=== PATIENT | female | born 1995 | race Caucasian/White ===

== ENCOUNTER → 2017-10-21 | Outpatient (CLI) | payer SELFPAY ==
--- NOTE | 2017-10-21 18:37 | RADIOLOGY IMAGING REPORT ---
[place] [facility] [place] NAME: Viji Baca : 1995 MR: [id number] V: [id number] EXAM DATE: ORDERING PHYSICIAN: JEISON VERA TECHNOLOGIST: Location: Patient: Viji Baca : 1995 Visit/Account:[id number] Date of Sevice: 10/21/2017 WRIST RIGHT MIN 3 VIEW Indication: Pain Comparison: None Available Findings: No evidence of fracture, dislocation, or acute osseous abnormality right wrist. No evidence of radiopaque foreign body. There is no focal soft tissue abnormality. IMPRESSION: 1.No acute osseous abnormality right wrist Report Dictated By: Dmitriy Fonseca at 10/21/2017 6:33 PM Report E-Signed By: Dmitriy Fonseca at 10/21/2017 6:33 PM WSN:[id number]
== END ==
LOC: RAD 17:05
PROVIDERS: ATTEND Nurse Practitioner Family
DX: M25.531 Pain in right wrist (principal)

== ENCOUNTER 2018-03-24 21:01 | Emergency (ER) | payer SELFPAY ==
--- NOTE | 2018-03-24 21:14 | ER Report ---
History and Physical Time Seen By MD: 21:13 HPI/ROS CHIEF COMPLAINT: Vomiting and diarrhea HISTORY OF PRESENT ILLNESS: 23-year-old female presents ambulatory to the ER complaining of diarrhea for 4 days. She works at daycare. Tonight she began vomiting which prompted her to come to the ER. She describes burning stomach pain throughout her abdomen. She's had no hematemesis. She's had no blood per rectum or fevers. She denies recent antibiotic use or consumption of bad food. Patient denies dysuria. REVIEW OF SYSTEMS: Respiratory: No cough, no dyspnea. Cardiovascular: No chest pain, no palpitations. Gastrointestinal: As above Musculoskeletal: No back pain. Allergies: Coded Allergies: No Known Drug Allergies (Unverified , 03/24/18) Home Meds Active Scripts Promethazine Hcl (PROMETHAZINE HCL) 25 Mg Tablet, 25 MG PO Q4H PRN for NAUSEA/VOMITING, #12 TAB Prov:CARROLL FUENTES DO 03/24/18 Reviewed Nurses Notes: Yes Old Medical Records Reviewed: Yes Constitutional Vital Sign - Last 24 Hours 03/24/18 03/24/18 03/24/18 03/24/18 21:14 21:16 21:18 21:31 Temp 97.9 Pulse 74 ? Resp 16 B/P (MAP) 132/77 132/77 (95) Pulse Ox 100 03/24/18 03/24/18 03/24/18 03/24/18 21:46 22:00 22:01 22:16 Pulse ? B/P (MAP) ???/??? (1665) 03/24/18 03/24/18 03/24/18 03/24/18 22:31 22:43 22:46 22:51 Pulse ??? 77 71 B/P (MAP) 119/73 (88) Pulse Ox 98 99 03/24/18 03/24/18 03/24/18 03/24/18 23:00 23:02 23:06 23:21 Pulse 66 71 B/P (MAP) 127/79 (95) Pulse Ox 100 100 O2 Flow Rate 2.0 03/24/18 03/24/18 03/24/18 03/24/18 23:30 23:36 23:41 23:51 Pulse 72 ??? B/P (MAP) 126/82 (97) 109/60 (76) Pulse Ox 100 03/25/18 00:04 Pulse ??? Intake and Output 03/24/18 03/24/18 03/25/18 15:00 23:00 07:00 Intake Total 1000 ml 1000 ml Balance 1000 ml 1000 ml Physical Exam Vital signs stable, mild tachycardia, afebrile, pulse ox normal General Appearance: The patient is alert, has no immediate need for airway protection and no current signs of toxicity., Pale appearing, skin warm and dry HEENT: Pupils equal and round no injection. Oropharynx with mild erythema, hemorrhage are moist, no exudate Respiratory: Chest is non tender, lungs are clear to auscultation. Cardiac: regular rate and rhythm Gastrointestinal: Abdomen is soft, mild diffuse tenderness, no masses, bowel sounds are hyperactive. Musculoskeletal: Neck: Neck is supple and non tender. Extremities have full range of motion and are non tender. Skin: No rashes or lesions. DIFFERENTIAL DIAGNOSIS: After history and physical exam differential diagnosis was considered for abdominal pain including but not limited to appendicitis, cholecystitis, gastritis, gastritis, food poisoning, viral syndrome and urinary tract infection. Medical Decision Making Data Points Result Diagram: 03/24/18213803/24/182138 Laboratory Hematology Test 03/24/18 21:16 03/24/18 21:39 Urine Color Straw Urine Clarity Clear Urine pH 6.0 pH (4.8-9.5) Urine Specific [place] 1.001 Urine Protein Negative mg/dL (NEGATIVE) Urine Glucose (UA) Negative mg/dL (NEGATIVE) Urine Ketones Negative mg/dL (NEGATIVE) Urine Blood Negative (NEGATIVE) Urine Nitrite Negative (NEGATIVE) Urine Bilirubin Negative (NEGATIVE) Urine Urobilinogen Negative mg/dL (0.2-1.9) Urine Leukocyte Esterase Negative (NEGATIVE) Urine RBC <1 /HPF (0-2/HPF) Urine WBC <1 /HPF (0-5/HPF) Urine Squamous Epithelial Cells None /LPF (</=FEW) Urine Bacteria Moderate /HPF (NONE-FEW) Urine Mucus None /HPF (NONE-FEW) Red Blood Count 5.55 M/uL (4.17-5.56) Mean Corpuscular Volume 84.6 fL (80.0-96.0) Mean Corpuscular Hemoglobin 29.0 pg (26.0-33.0) Mean Corpuscular Hemoglobin Concent 34.4 g/dL (32.0-36.0) Red Cell Distribution Width 13.3 % (11.5-14.5) Mean Platelet Volume 8.3 fL (7.2-11.1) Neutrophils (%) (Auto) 48.7 % (39.4-72.5) Lymphocytes (%) (Auto) 39.1 % (17.6-49.6) Monocytes (%) (Auto) 9.4 % (4.1-12.4) Eosinophils (%) (Auto) 2.3 % (0.4-6.7) Basophils (%) (Auto) 0.5 % (0.3-1.4) Nucleated RBC Relative Count (auto) 0.1 /100WBC Neutrophils # (Auto) 3.0 K/uL (2.0-7.4) Lymphocytes # (Auto) 2.4 K/uL (1.3-3.6) Monocytes # (Auto) 0.6 K/uL (0.3-1.0) Eosinophils # (Auto) 0.1 K/uL (0.0-0.5) Basophils # (Auto) 0.0 K/uL (0.0-0.1) Nucleated RBC Absolute Count (auto) 0.01 K/uL Sodium Level 141 mmol/L (137-145) Potassium Level 3.1 mmol/L (3.5-5.0) Chloride Level 108 mmol/L (98-107) Carbon Dioxide Level 22 mmol/L (22-31) Blood Urea Nitrogen 7 mg/dl (7-18) Creatinine 0.70 mg/dl (0.52-1.04) Glomerular Filtration Rate Calc > 60.0 Random Glucose 97 mg/dl (75-110) Calcium Level 9.8 mg/dl (8.4-10.2) Total Bilirubin 0.9 mg/dl (0.2-1.3) Aspartate Amino Transf (AST/SGOT) 50 U/L (0-35) Alanine Aminotransferase (ALT/SGPT) 61 U/L (0-56) Alkaline Phosphatase 96 U/L (0-126) Total Protein 8.3 g/dl (6.3-8.2) Albumin 4.7 g/dl (3.5-5.0) Amylase Level 90 U/L (0-110) Lipase 195 U/L (23-300) Human Chorionic Gonadotropin, Qual Negative (NEGATIVE) Chemistry Test 03/24/18 21:16 03/24/18 21:39 Urine Color Straw Urine Clarity Clear Urine pH 6.0 pH (4.8-9.5) Urine Specific [place] 1.001 Urine Protein Negative mg/dL (NEGATIVE) Urine Glucose (UA) Negative mg/dL (NEGATIVE) Urine Ketones Negative mg/dL (NEGATIVE) Urine Blood Negative (NEGATIVE) Urine Nitrite Negative (NEGATIVE) Urine Bilirubin Negative (NEGATIVE) Urine Urobilinogen Negative mg/dL (0.2-1.9) Urine Leukocyte Esterase Negative (NEGATIVE) Urine RBC <1 /HPF (0-2/HPF) Urine WBC <1 /HPF (0-5/HPF) Urine Squamous Epithelial Cells None /LPF (</=FEW) Urine Bacteria Moderate /HPF (NONE-FEW) Urine Mucus None /HPF (NONE-FEW) White Blood Count 6.2 k/uL (4.5-11.0) Red Blood Count 5.55 M/uL (4.17-5.56) Hemoglobin 16.1 g/dL (12.0-16.0) Hematocrit 46.9 % (34.0-47.0) Mean Corpuscular Volume 84.6 fL (80.0-96.0) Mean Corpuscular Hemoglobin 29.0 pg (26.0-33.0) Mean Corpuscular Hemoglobin Concent 34.4 g/dL (32.0-36.0) Red Cell Distribution Width 13.3 % (11.5-14.5) Platelet Count 308 K/uL (150-450) Mean Platelet Volume 8.3 fL (7.2-11.1) Neutrophils (%) (Auto) 48.7 % (39.4-72.5) Lymphocytes (%) (Auto) 39.1 % (17.6-49.6) Monocytes (%) (Auto) 9.4 % (4.1-12.4) Eosinophils (%) (Auto) 2.3 % (0.4-6.7) Basophils (%) (Auto) 0.5 % (0.3-1.4) Nucleated RBC Relative Count (auto) 0.1 /100WBC Neutrophils # (Auto) 3.0 K/uL (2.0-7.4) Lymphocytes # (Auto) 2.4 K/uL (1.3-3.6) Monocytes # (Auto) 0.6 K/uL (0.3-1.0) Eosinophils # (Auto) 0.1 K/uL (0.0-0.5) Basophils # (Auto) 0.0 K/uL (0.0-0.1) Nucleated RBC Absolute Count (auto) 0.01 K/uL Glomerular Filtration Rate Calc > 60.0 Calcium Level 9.8 mg/dl (8.4-10.2) Total Bilirubin 0.9 mg/dl (0.2-1.3) Aspartate Amino Transf (AST/SGOT) 50 U/L (0-35) Alanine Aminotransferase (ALT/SGPT) 61 U/L (0-56) Alkaline Phosphatase 96 U/L (0-126) Total Protein 8.3 g/dl (6.3-8.2) Albumin 4.7 g/dl (3.5-5.0) Amylase Level 90 U/L (0-110) Lipase 195 U/L (23-300) Human Chorionic Gonadotropin, Qual Negative (NEGATIVE) Urinalysis Test 03/24/18 21:16 Urine Color Straw Urine Clarity Clear Urine pH 6.0 pH (4.8-9.5) Urine Specific [place] 1.001 Urine Protein Negative mg/dL (NEGATIVE) Urine Glucose (UA) Negative mg/dL (NEGATIVE) Urine Ketones Negative mg/dL (NEGATIVE) Urine Blood Negative (NEGATIVE) Urine Nitrite Negative (NEGATIVE) Urine Bilirubin Negative (NEGATIVE) Urine Urobilinogen Negative mg/dL (0.2-1.9) Urine Leukocyte Esterase Negative (NEGATIVE) Urine RBC <1 /HPF (0-2/HPF) Urine WBC <1 /HPF (0-5/HPF) Urine Squamous Epithelial Cells None /LPF (</=FEW) Urine Bacteria Moderate /HPF (NONE-FEW) Urine Mucus None /HPF (NONE-FEW) ED Course/Re-evaluation Clinical Indication for ER IV: Hydration, IV Access ED Course Patient was admitted to an examination room. H&P was done. The differential diagnoses was considered. On clinical examination. Patient has a benign nonsurgical abdomen. She is aggressively treated with IV fluid hydration, Zo petar, and analgesics. Patient's diagnostic studies were unremarkable. She was in the bathroom 2 times during her ER stay. She was unable to provide a diarrhea specimen for analysis. She's not had any recent antibiotics. She works at daycare. It is likely viral gastroenteritis causing her symptoms. Patient's advised a clear liquid diet. She is given a prescription for Phenergan to control her vomiting. She is advised ibuprofen for pain relief. She is advised to advance slowly through the brat diet.. Decision to Disposition Date: Mar 24, 2018 Decision to Disposition Time: 22:23 Depart Departure Latest Vital Signs Vital Signs Date Time Temp Pulse Resp B/P (MAP) Pulse Ox O2 Delivery O2 Flow Rate FiO2 03/25/18 00:04 ??? 03/24/18 23:41 109/60 (76) 03/24/18 23:36 100 03/24/18 23:02 2.0 03/24/18 21:14 97.9 16 Impression: Primary Impression: Vomiting and diarrhea Condition: Improved Disposition: HOME OR SELF-CARE Referrals: JACOB PIMENTEL MD, FARRUKH MD New Scripts Promethazine Hcl (PROMETHAZINE HCL) 25 Mg Tablet 25 MG PO Q4H PRN for NAUSEA/VOMITING, #12 TAB Prov: CARROLL FUENTES DO 03/24/18 Patient Instructions: Acute Diarrhea (ED), Acute Nausea and Vomiting (ED), Clear Liquid Diet (ED) Additional Instructions: Follow clear liquid diet for 24-48 hours, then advance to the brat diet, bananas, rice, applesauce and toast Take Imodium to control the diarrhea Take ibuprofen 200 mg 2 tablets 3 times a day for inflammatory pain relief Follow-up with your primary care doctor if unimproved in 3-5 days. CARROLL FUENTES DO Mar 24, 2018 21:14
[2018-03-24] MEDS ORDERED: KETOROLAC 30 MG/ML VIAL IVP ONE (21:20)
[2018-03-24] MEDS ORDERED: ONDANSETRON 4 MG/2 ML VIAL IVP ONE (21:20)
[2018-03-24] MEDS ORDERED: NS(*) 0.9% 1000 ML BAG 1,000 ML IV ONE (21:20)
[2018-03-24] MEDS ORDERED: fentaNYL CITR 100 MCG/2 ML AMP IVP ONE ×2 (21:35→22:25)
[2018-03-24 21:54] LABS: PLATELET COUNT, AUTOMATED 308 K/uL (150-450)
[2018-03-24] MEDS ORDERED: PROMETHAZINE 25 MG/ML 1 ML AMP IVP ONE (22:25)
[2018-03-24] MEDS ORDERED: LR(*) 1000 ML BAG 1,000 ML IV PRN (22:50)
[2018-03-24] MEDS ORDERED: PROM-110 PO (22:59)
[2018-03-24] MEDS ORDERED: ACET/HYDROC 5/325MG TH ER ONLY 2 TAB/BOTTLE PO ONE (23:10)
[2018-03-24] MEDS ORDERED: PROMETHAZINE HCL 25 MG TAB TH 2 TAB/BOTTLE PO ONE (23:10)
[2018-03-24 23:41] VITALS: BP 109/60
== END 2018-03-24 23:50 | disposition home or self-care (01) ==
LOC: ER 21:42
DX: R19.7 Diarrhea, unspecified (principal); R11.10 Vomiting, unspecified
CPT/HCPCS: 81001; 82150; 83690; 84703; 85025; 96361; 96374; 96375; 96376; 99284; J1885; J2405; J2550; J3010; J7030; J7120; 82040; 82247; 82310; 82374; 82435; 82565; 82947; 84075; 84132; 84155; 84295; 84450; 84460; 84520

== ENCOUNTER 2018-06-07 15:03 | Emergency (ER) | payer SELFPAY ==
[~2018-06-07 15:03] MED LIST: PROM-110 PO
--- NOTE | 2018-06-07 15:12 | ER Report ---
History and Physical Time Seen By MD: 15:12 HPI/ROS CHIEF COMPLAINT: Abdominal pain HISTORY OF PRESENT ILLNESS: 23-year-old female patient presents to emergency room with complaint of abdominal pain. Patient states that the pain has been going on for the past several months. Patient states that she has been seen by primary care provider at [facility] and was told that they're concerned that she may have appendicitis. They recommended getting some lab work done. She states that she was not able to get the lab work done as [place] clinic [place]. Patient states that she has tried taking some Tylenol for this. She states there is no improvement in her discomfort with the Tylenol. Patient rates her pain currently a 9 out of 10. Patient indicates the pain seems to be in the upper abdomen, worse on the right side but states that today the pain is worse in the left upper and lower quadrants. REVIEW OF SYSTEMS: Respiratory: No cough, no dyspnea. Cardiovascular: No chest pain, no palpitations. Gastrointestinal: As noted above Musculoskeletal: No back pain. Allergies: Coded Allergies: No Known Drug Allergies (Unverified , 03/24/18) Home Meds Active Scripts Ondansetron Hcl (ZOFRAN) 4 Mg Tablet, 4 MG PO Q6H PRN for NAUSEA/VOMITING, #20 TAB Prov:DAVY MONTERO [facility] 06/07/18 Dicyclomine Hcl (DICYCLOMINE HCL) 20 Mg Tablet, 20 MG PO QID, #60 TAB Prov:DAVY MONTERO [facility] 06/07/18 Discontinued Scripts Promethazine Hcl (PROMETHAZINE HCL) 25 Mg Tablet, 25 MG PO Q4H PRN for NAUSEA/VOMITING, #12 TAB Prov:CARROLL FUENTES DO 03/24/18 Past Medical/Surgical History Patient denies any pertinent medical or surgical history. Reviewed Nurses Notes: Yes Hx Substance Use Disorder: No Hx Alcohol Use: No Constitutional Vital Sign - Last 24 Hours 06/07/18 06/07/18 06/07/18 06/07/18 15:14 15:30 15:43 16:00 Temp 98.3 Pulse 99 97 85 Resp 20 B/P (MAP) 121/84 117/84 (95) 119/76 (90) Pulse Ox 94 100 97 06/07/18 06/07/18 16:30 17:00 Pulse 80 85 B/P (MAP) 99/57 (71) 101/63 (76) Pulse Ox 94 96 Physical Exam General Appearance: The patient is alert, has no immediate need for airway protection and no current signs of toxicity. Respiratory: Chest is non tender, lungs are clear to auscultation. Cardiac: regular rate and rhythm Gastrointestinal: Abdomen is soft and tender diffusely but seems to be worse in the right upper quadrant, left upper quadrant and left lower quadrant, no masses, bowel sounds normal. Musculoskeletal: Neck: Neck is supple and non tender. Extremities have full range of motion and are non tender. Skin: No rashes or lesions. DIFFERENTIAL DIAGNOSIS: After history and physical exam differential diagnosis was considered for abdominal pain including but not limited to appendicitis, cholecystitis, gastritis and urinary tract infection. Medical Decision Making Data Points Result Diagram: 06/07/18 1538 06/07/18 1538 Laboratory Hematology Test 06/07/18 15:10 06/07/18 15:38 Urine Color Yellow Urine Clarity Slightly-cloudy Urine pH 7.0 pH (4.8-9.5) Urine Specific [place] 1.031 Urine Protein 30 mg/dL (NEGATIVE) Urine Glucose (UA) Negative mg/dL (NEGATIVE) Urine Ketones Negative mg/dL (NEGATIVE) Urine Blood Small (NEGATIVE) Urine Nitrite Negative (NEGATIVE) Urine Bilirubin Negative (NEGATIVE) Urine Urobilinogen 2.0 mg/dL (0.2-1.9) Urine Leukocyte Esterase Negative (NEGATIVE) Urine RBC 19 /HPF (0-2/HPF) Urine WBC 1 /HPF (0-5/HPF) Urine Squamous Epithelial Cells Many /LPF (</=FEW) Urine Amorphous Crystals Few /HPF Urine Bacteria Few /HPF (NONE-FEW) Urine Mucus Few /HPF (NONE-FEW) Red Blood Count 6.17 M/uL (4.17-5.56) Mean Corpuscular Volume 85.7 fL (80.0-96.0) Mean Corpuscular Hemoglobin 28.2 pg (26.0-33.0) Mean Corpuscular Hemoglobin Concent 32.9 g/dL (32.0-36.0) Red Cell Distribution Width 13.2 % (11.5-14.5) Mean Platelet Volume 8.3 fL (7.2-11.1) Neutrophils (%) (Auto) 61.7 % (39.4-72.5) Lymphocytes (%) (Auto) 30.8 % (17.6-49.6) Monocytes (%) (Auto) 6.4 % (4.1-12.4) Eosinophils (%) (Auto) 0.7 % (0.4-6.7) Basophils (%) (Auto) 0.4 % (0.3-1.4) Nucleated RBC Relative Count (auto) 0.2 /100WBC Neutrophils # (Auto) 5.0 K/uL (2.0-7.4) Lymphocytes # (Auto) 2.5 K/uL (1.3-3.6) Monocytes # (Auto) 0.5 K/uL (0.3-1.0) Eosinophils # (Auto) 0.1 K/uL (0.0-0.5) Basophils # (Auto) 0.0 K/uL (0.0-0.1) Nucleated RBC Absolute Count (auto) 0.02 K/uL Sodium Level 143 mmol/L (137-145) Potassium Level 3.5 mmol/L (3.5-5.0) Chloride Level 107 mmol/L (98-107) Carbon Dioxide Level 20 mmol/L (22-31) Blood Urea Nitrogen 10 mg/dl (7-18) Creatinine 0.80 mg/dl (0.52-1.04) Glomerular Filtration Rate Calc > 60.0 Random Glucose 83 mg/dl (75-110) Calcium Level 10.4 mg/dl (8.4-10.2) Total Bilirubin 1.2 mg/dl (0.2-1.3) Aspartate Amino Transf (AST/SGOT) 48 U/L (0-35) Alanine Aminotransferase (ALT/SGPT) 65 U/L (0-56) Alkaline Phosphatase 95 U/L (0-126) Total Protein 9.0 g/dl (6.3-8.2) Albumin 5.2 g/dl (3.5-5.0) Amylase Level 93 U/L (0-110) Lipase 189 U/L (23-300) Human Chorionic Gonadotropin, Qual Negative (NEGATIVE) Helicobacter pylori IgG Antibody Negative (NEGATIVE) Chemistry Test 06/07/18 15:10 06/07/18 15:38 Urine Color Yellow Urine Clarity Slightly-cloudy Urine pH 7.0 pH (4.8-9.5) Urine Specific [place] 1.031 Urine Protein 30 mg/dL (NEGATIVE) Urine Glucose (UA) Negative mg/dL (NEGATIVE) Urine Ketones Negative mg/dL (NEGATIVE) Urine Blood Small (NEGATIVE) Urine Nitrite Negative (NEGATIVE) Urine Bilirubin Negative (NEGATIVE) Urine Urobilinogen 2.0 mg/dL (0.2-1.9) Urine Leukocyte Esterase Negative (NEGATIVE) Urine RBC 19 /HPF (0-2/HPF) Urine WBC 1 /HPF (0-5/HPF) Urine Squamous Epithelial Cells Many /LPF (</=FEW) Urine Amorphous Crystals Few /HPF Urine Bacteria Few /HPF (NONE-FEW) Urine Mucus Few /HPF (NONE-FEW) White Blood Count 8.1 k/uL (4.5-11.0) Red Blood Count 6.17 M/uL (4.17-5.56) Hemoglobin 17.4 g/dL (12.0-16.0) Hematocrit 52.9 % (34.0-47.0) Mean Corpuscular Volume 85.7 fL (80.0-96.0) Mean Corpuscular Hemoglobin 28.2 pg (26.0-33.0) Mean Corpuscular Hemoglobin Concent 32.9 g/dL (32.0-36.0) Red Cell Distribution Width 13.2 % (11.5-14.5) Platelet Count 302 K/uL (150-450) Mean Platelet Volume 8.3 fL (7.2-11.1) Neutrophils (%) (Auto) 61.7 % (39.4-72.5) Lymphocytes (%) (Auto) 30.8 % (17.6-49.6) Monocytes (%) (Auto) 6.4 % (4.1-12.4) Eosinophils (%) (Auto) 0.7 % (0.4-6.7) Basophils (%) (Auto) 0.4 % (0.3-1.4) Nucleated RBC Relative Count (auto) 0.2 /100WBC Neutrophils # (Auto) 5.0 K/uL (2.0-7.4) Lymphocytes # (Auto) 2.5 K/uL (1.3-3.6) Monocytes # (Auto) 0.5 K/uL (0.3-1.0) Eosinophils # (Auto) 0.1 K/uL (0.0-0.5) Basophils # (Auto) 0.0 K/uL (0.0-0.1) Nucleated RBC Absolute Count (auto) 0.02 K/uL Glomerular Filtration Rate Calc > 60.0 Calcium Level 10.4 mg/dl (8.4-10.2) Total Bilirubin 1.2 mg/dl (0.2-1.3) Aspartate Amino Transf (AST/SGOT) 48 U/L (0-35) Alanine Aminotransferase (ALT/SGPT) 65 U/L (0-56) Alkaline Phosphatase 95 U/L (0-126) Total Protein 9.0 g/dl (6.3-8.2) Albumin 5.2 g/dl (3.5-5.0) Amylase Level 93 U/L (0-110) Lipase 189 U/L (23-300) Human Chorionic Gonadotropin, Qual Negative (NEGATIVE) Helicobacter pylori IgG Antibody Negative (NEGATIVE) Urinalysis Test 06/07/18 15:10 Urine Color Yellow Urine Clarity Slightly-cloudy Urine pH 7.0 pH (4.8-9.5) Urine Specific [place] 1.031 Urine Protein 30 mg/dL (NEGATIVE) Urine Glucose (UA) Negative mg/dL (NEGATIVE) Urine Ketones Negative mg/dL (NEGATIVE) Urine Blood Small (NEGATIVE) Urine Nitrite Negative (NEGATIVE) Urine Bilirubin Negative (NEGATIVE) Urine Urobilinogen 2.0 mg/dL (0.2-1.9) Urine Leukocyte Esterase Negative (NEGATIVE) Urine RBC 19 /HPF (0-2/HPF) Urine WBC 1 /HPF (0-5/HPF) Urine Squamous Epithelial Cells Many /LPF (</=FEW) Urine Amorphous Crystals Few /HPF Urine Bacteria Few /HPF (NONE-FEW) Urine Mucus Few /HPF (NONE-FEW) EKG/Imaging Imaging CT abdomen and pelvis with IV contrast Indication: Abdominal pain. Comparison: None available. . Technique: Axial CT images were obtained through the abdomen and pelvis during injection of nonionic iodinated intravenous contrast. Reformatted coronal and sagittal images were also obtained. One of the following dose optimization techniques was utilized in the performance of this exam: Automated exposure control; adjustment of the mA and/or kV according to the patient's size; or use of an iterative reconstruction technique. Specific details can be referenced in the facility's radiology CT exam operational policy. Contrast: 75 ml of Isovue-370 IV contrast. Findings: Lower lung gillis: Limited views lower lung field are unremarkable. Liver: No focal parenchymal abnormality of the liver. Biliary: Gallbladder appears unremarkable as well as the intra and extra hepatic biliary system. Pancreas: Normal appearance. Spleen: Normal appearance. Adrenal glands: Unremarkable. Kidneys / retroperitoneum: No evidence of nephrolithiasis or hydronephrosis. No discrete renal lesions. The inferior pole left kidney shows mild scarring and cortical calcification. At this level there is also 2 renal veins extending from this area into the IVC behind the aorta. There is also left renal vein anterior to the aorta. Bowel / peritoneum / mesenteries: The colon shows no focal abnormality. The appendix is normal. Small bowel shows no focal normality or obstruction. The stomach is unremarkable. Tiny bit of free fluid seen in pelvis likely physiologic. No fluid collections, free air or areas of inflammation. Lymph node assessment: No pathologic adenopathy identified. Pelvic structures: Pelvic structures visualized within normal limits. Vessels: No significant atherosclerotic calcifications seen throughout a nonaneurysmal abdominal aorta and branches. Musculoskeletal / Body wall: No acute or aggressive osseous abnormality. Incidental note of a pseudarthrosis between the right L5 transverse process and sacrum. IMPRESSION: 1. No acute intra-abdominal abnormality 2. Other chronic findings as above. Report Dictated By: Macho De at 06/07/2018 4:34 PM Report E-Signed By: Macho De at 06/07/2018 4:41 PM ED Course/Re-evaluation ED Course Patient was admitted to exam room, history and physical were obtained. Differential diagnoses were considered. On examination patient does have diffuse abdominal tenderness. A CBC, CMP, hCG, urinalysis were obtained. Lab results were unremarkable. Patient did have protein in her urine, protein or blood work was elevated at 9.3. I'm unsure as the pertinence of the protein in her urine. I discussed the findings with patient. Discussed the protein in her urine. It is my recommendation that she follow-up with her primary care provider in the next week to have a repeat urinalysis. I explained to her that I'm not sure what the cause of her abdominal pain is. However we will go ahead and put her on some Be ntyl to help with her discomfort. We will also give her some Zofran to help with the nausea. She is to follow-up as directed. She is return to emergency room if condition worsens. Patient verbalized understanding and agreement with plan. Decision to Disposition Date: Jun 07, 2018 Decision to Disposition Time: 16:56 Depart Departure Latest Vital Signs Vital Signs Date Time Temp Pulse Resp B/P (MAP) Pulse Ox O2 Delivery O2 Flow Rate FiO2 06/07/18 17:00 85 101/63 (76) 96 06/07/18 15:14 98.3 20 Impression: Primary Impression: Abdominal pain Condition: Improved Disposition: HOME OR SELF-CARE New Scripts Ondansetron Hcl (ZOFRAN) 4 Mg Tablet 4 MG PO Q6H PRN for NAUSEA/VOMITING, #20 TAB Prov: DAVY MONTERO MARTITA 06/07/18 Dicyclomine Hcl (DICYCLOMINE HCL) 20 Mg Tablet 20 MG PO QID, #60 TAB Prov: DAVY MONTERO MARTITA 06/07/18 Patient Instructions: Abdominal Pain (ED) Additional Instructions: Get plenty of rest. Limit activity by pain. Follow up with your primary care provider in the next week, I would recommend getting a repeat urinalysis. Increase fluid intake. Return to the ER if condition worsens. Keep a journal of your diet and pay attention to the foods that seem to upset your stomach. If you are not finding any cause for your pain you may need to see a general surgeon for colonoscopy. Continue with the diet that was recommended by your primary care provider. Take the omeprazole as directed. Problem Qualifiers Primary Impression: Abdominal pain Abdominal location: generalized Qualified Codes: R10.84 - Generalized abdominal pain BRANDEN MONTEROBabak ANDERS Jun 07, 2018 15:12
[2018-06-07] MEDS ORDERED: NS(*) 0.9% 1000 ML BAG 1,000 ML IV ONE (15:30)
[2018-06-07] MEDS ORDERED: ONDANSETRON 4 MG/2 ML VIAL IVP ONE (15:30)
[2018-06-07] MEDS ORDERED: MORPHINE 2 MG/ML SYR IVP ONE (15:30)
[2018-06-07 15:47] LABS: PLATELET COUNT, AUTOMATED 302 K/uL (150-450)
[2018-06-07] MEDS ORDERED: IOPAMIDOL 76% 100 ML INFUS BTL 100 ML ONE (15:50)
--- NOTE | 2018-06-07 16:50 | RADIOLOGY IMAGING REPORT ---
FACILITY: [facility] [place] PATIENT NAME: Viji Baca : 1995 MR: [id number] V: [id number] EXAM DATE: ORDERING PHYSICIAN: DAVY MONTERO TECHNOLOGIST: Location: [facility] Patient: Viji Baca : 1995 Visit/Account:[id number] Date of Sevice: 06/07/2018 CT abdomen and pelvis with IV contrast Indication: Abdominal pain. Comparison: None available. . Technique: Axial CT images were obtained through the abdomen and pelvis during injection of nonioni c iodinated intravenous contrast. Reformatted coronal and sagittal images were also obtained. One of the following dose optimization techniques was utilized in the performance of this exam: Autom ated exposure control; adjustment of the mA and/or kV according to the patient's size; or use of an i terative reconstruction technique. Specific details can be referenced in the facility's radiology C T exam operational policy. Contrast: 75 ml of Isovue-370 IV contrast. Findings: Lower lung gillis: Limited views lower lung field are unremarkable. Liver: No focal parenchymal abnormality of the liver. Biliary: Gallbladder appears unremarkable as well as the intra and extra hepatic biliary system. Pancreas: Normal appearance. Spleen: Normal appearance. Adrenal glands: Unremarkable. Kidneys / retroperitoneum: No evidence of nephrolithiasis or hydronephrosis. No discrete renal lesion s. The inferior pole left kidney shows mild scarring and cortical calcification. At this level there is also 2 renal veins extending from this area into the IVC behind the aorta. There is also left craig l vein anterior to the aorta. Bowel / peritoneum / mesenteries: The colon shows no focal abnormality. The appendix is normal. Small bowel shows no focal normality or obstruction. The stomach is unremarkable. Tiny bit of free fluid seen in pelvis likely physiologic. No fluid collections, free air or areas of inflammation. Lymph node assessment: No pathologic adenopathy identified. Pelvic structures: Pelvic structures visualized within normal limits. Vessels: No significant atherosclerotic calcifications seen throughout a nonaneurysmal abdominal aort a and branches. Musculoskeletal / Body wall: No acute or aggressive osseous abnormality. Incidental note of a pseudar throsis between the right L5 transverse process and sacrum. IMPRESSION: 1. No acute intra-abdominal abnormality 2. Other chronic findings as above. Report Dictated By: Macho De at 06/07/2018 4:34 PM Report E-Signed By: Macho De at 06/07/2018 4:41 PM WSN:[id number]
[2018-06-07 17:00] VITALS: BP 101/63
[2018-06-07] MEDS ORDERED: DICY20TA70 PO (17:07)
[2018-06-07] MEDS ORDERED: ONDA4TAB97 PO (17:07)
== END 2018-06-07 17:24 | disposition home or self-care (01) ==
LOC: ER 15:16
DX: R10.84 Generalized abdominal pain (principal)
CPT/HCPCS: 74177; 81001; 82150; 83690; 84703; 85025; 86677; 96361; 96374; 96375; 99284; J2270; J2405; J7030; Q9967; 82040; 82247; 82310; 82374; 82435; 82565; 82947; 84075; 84132; 84155; 84295; 84450; 84460; 84520

== ENCOUNTER 2018-06-25 20:13 | Emergency (ER) | payer SELFPAY ==
[~2018-06-25 20:13] MED LIST changes: +DICY20TA70 PO; +ONDA4TAB97 PO
--- NOTE | 2018-06-25 20:34 | ER Report ---
History and Physical Time Seen By MD: 20:34 Hx. of Stated Complaint: nausea for last two days. around 4pm today pt started having severe body aches, stomach pain, throwing HPI/ROS CHIEF COMPLAINT: abdominal pain HISTORY OF PRESENT ILLNESS: This is a 23 year old female. She had onset of abdominal pain earlier today. She had this in the right lower abdomen with radiation to the left side. Worsens with movement. Diarrhea yesterday. Nausea for the last two days. with an episode of vomiting earlier today. No fevers or c hills. Has body aches. Allergies: Coded Allergies: No Known Drug Allergies (Unverified , 03/24/18) Home Meds Active Scripts Ondansetron 4 Mg Odt (ONDANSETRON 4 MG ODT) 4 Mg Tab.rapdis, 4 MG PO Q6H PRN for NAUSEA/VOMITING, #20 TAB 0 Refills Prov:MORGAN GOINS MD 06/26/18 Hydrocodone Bit/Acetaminophen (HYDROCODON-ACETAMINOPHEN 5-325) 1 Each Tablet, 1 EACH PO Q4H PRN for PAIN, #12 TAB 0 Refills Prov:MORGAN GOINS MD 06/26/18 Dicyclomine Hcl (DICYCLOMINE HCL) 20 Mg Tablet, 20 MG PO QID, #60 TAB Prov:DAVY MONTERO 06/07/18 Discontinued Scripts Ondansetron Hcl (ZOFRAN) 4 Mg Tablet, 4 MG PO Q6H PRN for NAUSEA/VOMITING, #20 TAB Prov:DAVY MONTERO 06/07/18 Reviewed Nurses Notes: Yes Hx Substance Use Disorder: No Hx Alcohol Use: No Constitutional Vital Sign - Last 24 Hours 06/25/18 06/25/18 06/25/18 06/25/18 20:13 20:20 20:20 20:30 Temp 99.1 Pulse ??? 112 Resp 16 B/P (MAP) 127/120 127/120 (122) 126/101 (109) Pulse Ox 98 O2 Delivery Room Air 06/25/18 06/25/18 06/25/18 06/25/18 20:43 21:00 21:30 21:43 Pulse 56 110 B/P (MAP) 121/83 (96) 106/70 (82) Pulse Ox 91 90 06/25/18 06/25/18 22:00 23:30 Pulse 120 99 B/P (MAP) 108/74 (85) 111/59 (76) Pulse Ox 97 94 Intake and Output 06/25/18 06/25/18 06/26/18 15:00 23:00 07:00 Intake Total 1000 ml Balance 1000 ml Physical Exam General Appearance: The patient is alert. Crying because of pain. Eyes: Pupils are equal, round. No pallor, injection or icterus. ENT: Mucous membranes are moist. Normal oral mucosa. Posterior oropharynx is normal. Neck: Supple and non tender. Respiratory: Lungs are clear to auscultation. Cardiovascular: Regular rate and rhythm. No murmurs, gallops or rubs. Normal capillary refill. Gastrointestinal: Abdomen is soft, tender in the right lower abdomen. Nondistended. Normal active bowel sounds. No costovertebral angle tenderness with percussion. Neurological: Alert and oriented x3. No focal neurologic deficits Skin: Warm and dry. Musculoskeletal: Extremities are nontender. No tenderness in palpation of the cervical, thoracic and lumbar spine. DIFFERENTIAL DIAGNOSIS: After history and physical exam, differential diagnosis was considered for abdominal pain in a female including but not limited to ovarian cyst, pelvic inflammatory disease, ovarian torsion, urinary tract infection, and appendicitis. Medical Decision Making Data Points Result Diagram: 06/25/18202606/25/182026 Laboratory Hematology Test 06/25/18 20:16 06/25/18 20:27 Urine Color Yellow Urine Clarity Slightly-cloudy Urine pH 7.0 pH (4.8-9.5) Urine Specific [place] 1.018 Urine Protein Negative mg/dL (NEGATIVE) Urine Glucose (UA) Negative mg/dL (NEGATIVE) Urine Ketones 20 mg/dL (NEGATIVE) Urine Blood Negative (NEGATIVE) Urine Nitrite Negative (NEGATIVE) Urine Bilirubin Negative (NEGATIVE) Urine Urobilinogen Negative mg/dL (0.2-1.9) Urine Leukocyte Esterase Negative (NEGATIVE) Urine RBC 2 /HPF (0-2/HPF) Urine WBC 6 /HPF (0-5/HPF) Urine Squamous Epithelial Cells Many /LPF (</=FEW) Urine Bacteria Few /HPF (NONE-FEW) Urine Hyaline Casts Few /LPF (NONE-FEW) Urine Mucus Few /HPF (NONE-FEW) Red Blood Count 5.74 M/uL (4.17-5.56) Mean Corpuscular Volume 84.4 fL (80.0-96.0) Mean Corpuscular Hemoglobin 29.0 pg (26.0-33.0) Mean Corpuscular Hemoglobin Concent 34.4 g/dL (32.0-36.0) Red Cell Distribution Width 13.7 % (11.5-14.5) Mean Platelet Volume 8.2 fL (7.2-11.1) Neutrophils (%) (Auto) 81.3 % (39.4-72.5) Lymphocytes (%) (Auto) 9.8 % (17.6-49.6) Monocytes (%) (Auto) 8.2 % (4.1-12.4) Eosinophils (%) (Auto) 0.4 % (0.4-6.7) Basophils (%) (Auto) 0.3 % (0.3-1.4) Nucleated RBC Relative Count (auto) 0.0 /100WBC Neutrophils # (Auto) 5.1 K/uL (2.0-7.4) Lymphocytes # (Auto) 0.6 K/uL (1.3-3.6) Monocytes # (Auto) 0.5 K/uL (0.3-1.0) Eosinophils # (Auto) 0.0 K/uL (0.0-0.5) Basophils # (Auto) 0.0 K/uL (0.0-0.1) Nucleated RBC Absolute Count (auto) 0.00 K/uL Sodium Level 139 mmol/L (137-145) Potassium Level 3.2 mmol/L (3.5-5.0) Chloride Level 111 mmol/L (98-107) Carbon Dioxide Level 21 mmol/L (22-31) Blood Urea Nitrogen 9 mg/dl (7-18) Creatinine 0.70 mg/dl (0.52-1.04) Glomerular Filtration Rate Calc > 60.0 Random Glucose 96 mg/dl (75-110) Calcium Level 10.1 mg/dl (8.4-10.2) Total Bilirubin 1.0 mg/dl (0.2-1.3) Aspartate Amino Transf (AST/SGOT) 122 U/L (0-35) Alanine Aminotransferase (ALT/SGPT) 219 U/L (0-56) Alkaline Phosphatase 121 U/L (0-126) C-Reactive Protein 0.8 mg/dl (<1.0) Total Protein 8.6 g/dl (6.3-8.2) Albumin 5.0 g/dl (3.5-5.0) Amylase Level 85 U/L (0-110) Lipase 141 U/L (23-300) Human Chorionic Gonadotropin, Qual Negative (NEGATIVE) Chemistry Test 06/25/18 20:16 06/25/18 20:27 Urine Color Yellow Urine Clarity Slightly-cloudy Urine pH 7.0 pH (4.8-9.5) Urine Specific [place] 1.018 Urine Protein Negative mg/dL (NEGATIVE) Urine Glucose (UA) Negative mg/dL (NEGATIVE) Urine Ketones 20 mg/dL (NEGATIVE) Urine Blood Negative (NEGATIVE) Urine Nitrite Negative (NEGATIVE) Urine Bilirubin Negative (NEGATIVE) Urine Urobilinogen Negative mg/dL (0.2-1.9) Urine Leukocyte Esterase Negative (NEGATIVE) Urine RBC 2 /HPF (0-2/HPF) Urine WBC 6 /HPF (0-5/HPF) Urine Squamous Epithelial Cells Many /LPF (</=FEW) Urine Bacteria Few /HPF (NONE-FEW) Urine Hyaline Casts Few /LPF (NONE-FEW) Urine Mucus Few /HPF (NONE-FEW) White Blood Count 6.3 k/uL (4.5-11.0) Red Blood Count 5.74 M/uL (4.17-5.56) Hemoglobin 16.6 g/dL (12.0-16.0) Hematocrit 48.4 % (34.0-47.0) Mean Corpuscular Volume 84.4 fL (80.0-96.0) Mean Corpuscular Hemoglobin 29.0 pg (26.0-33.0) Mean Corpuscular Hemoglobin Concent 34.4 g/dL (32.0-36.0) Red Cell Distribution Width 13.7 % (11.5-14.5) Platelet Count 272 K/uL (150-450) Mean Platelet Volume 8.2 fL (7.2-11.1) Neutrophils (%) (Auto) 81.3 % (39.4-72.5) Lymphocytes (%) (Auto) 9.8 % (17.6-49.6) Monocytes (%) (Auto) 8.2 % (4.1-12.4) Eosinophils (%) (Auto) 0.4 % (0.4-6.7) Basophils (%) (Auto) 0.3 % (0.3-1.4) Nucleated RBC Relative Count (auto) 0.0 /100WBC Neutrophils # (Auto) 5.1 K/uL (2.0-7.4) Lymphocytes # (Auto) 0.6 K/uL (1.3-3.6) Monocytes # (Auto) 0.5 K/uL (0.3-1.0) Eosinophils # (Auto) 0.0 K/uL (0.0-0.5) Basophils # (Auto) 0.0 K/uL (0.0-0.1) Nucleated RBC Absolute Count (auto) 0.00 K/uL Glomerular Filtration Rate Calc > 60.0 Calcium Level 10.1 mg/dl (8.4-10.2) Total Bilirubin 1.0 mg/dl (0.2-1.3) Aspartate Amino Transf (AST/SGOT) 122 U/L (0-35) Alanine Aminotransferase (ALT/SGPT) 219 U/L (0-56) Alkaline Phosphatase 121 U/L (0-126) C-Reactive Protein 0.8 mg/dl (<1.0) Total Protein 8.6 g/dl (6.3-8.2) Albumin 5.0 g/dl (3.5-5.0) Amylase Level 85 U/L (0-110) Lipase 141 U/L (23-300) Human Chorionic Gonadotropin, Qual Negative (NEGATIVE) Urinalysis Test 06/25/18 20:16 Urine Color Yellow Urine Clarity Slightly-cloudy Urine pH 7.0 pH (4.8-9.5) Urine Specific [place] 1.018 Urine Protein Negative mg/dL (NEGATIVE) Urine Glucose (UA) Negative mg/dL (NEGATIVE) Urine Ketones 20 mg/dL (NEGATIVE) Urine Blood Negative (NEGATIVE) Urine Nitrite Negative (NEGATIVE) Urine Bilirubin Negative (NEGATIVE) Urine Urobilinogen Negative mg/dL (0.2-1.9) Urine Leukocyte Esterase Negative (NEGATIVE) Urine RBC 2 /HPF (0-2/HPF) Urine WBC 6 /HPF (0-5/HPF) Urine Squamous Epithelial Cells Many /LPF (</=FEW) Urine Bacteria Few /HPF (NONE-FEW) Urine Hyaline Casts Few /LPF (NONE-FEW) Urine Mucus Few /HPF (NONE-FEW) EKG/Imaging Imaging COMPUTED TOMOGRAPHY OF THE Abdomen and Pelvis with CONTRAST INDICATION: Right lower quadrant pain. TECHNIQUE: Contiguous axial 3.[address] images were obtained through the abdomen and pelvis after 75 mL Isovue-370. Coronal and sagittal reformatted images were submitted. COMPARISON: CT June 07, 2018. FINDINGS: Lung bases: Clear Liver and hepatic vasculature: Imaging of the abdomen is degraded by motion. The liver is mildly enlarged measuring 21 cm craniocaudal. Gallbladder and bile ducts: Normal Spleen: Unremarkable Pancreas: Normal Adrenals: Normal Kidneys, ureters and bladder: Nonobstructive punctate left renal calculi. The left kidney is larger than the right. Enhancement is symmetric. Normal- appearing bladder. Retroperitoneum and aorta: Normal GI tract, mesentery and peritoneum: A few small bowel loops are fluid-filled, a nonspecific finding. There is no bowel obstruction. Normal volume of gas and stool in the colon. No free air. The appendix is not definitively identified. Uterus and adnexa: Unremarkable uterus. Trace fluid in the cul-de-sac is likely physiologic. There are multiple follicles in both ovaries. Bones and soft tissues: No acute osseous abnormality. IMPRESSION: 1. The appendix is not definitively identified. 2. Small volume of fluid in the cul-de-sac is likely physiologic. There are several prominent follicles at each ovary. 3. A few fluid-filled small bowel loops is a nonspecific or potentially even an incidental finding. Correlate with suspicion of enteritis. There is no bowel obstruction. One of the following dose optimization techniques was utilized in the performance of this exam: Automated exposure control; adjustment of the mA and/or kV according to the patient's size; or use of an iterative reconstruction technique. Specific details can be referenced in the facility's radiology CT exam operational policy. Report Dictated By: Yony Butler MD at 06/25/2018 9:26 PM Transvaginal pelvic ultrasound INDICATION: Right lower quadrant pain. COMPARISON: CT dated June 07, 2018. FINDINGS: Uterus measures 6.1 x 3.8 x 3.5 cm. Uterus is retroverted. Double wall endometrial stripe measures 6 mm. There is mild free fluid in the cul-de-sac. Urinary bladder is empty. Pelvic vessels appear unremarkable on this examination. Right ovary measures 4.0 x 2.3 x 1.6 cm and shows normal blood flow and contains several small follicles. Left ovary measures 3.6 x 2.2 x 1.4 cm and shows normal blood flow and contains several small follicles. IMPRESSION: 1. No acute findings. 2. Small volume free fluid within the pelvis, likely physiologic. Report Dictated By: Akira Sherwood MD at 06/25/2018 11:43 PM Exam type: RIGHT LOWER QUADRANT History: rlq/pelvic pain Comparison: CT dated June 07, 2018. Findings: Sonographic evaluation performed of the right lower quadrant. The appendix is not identified. There is no free fluid or lymphadenopathy. The technologist reports no rebound tenderness or guarding. IMPRESSION: Nonvisualization of the appendix. Report Dictated By: Akira Sherwood MD at 06/25/2018 11:41 PM ED Course/Re-evaluation Clinical Indication for ER IV: Hydration, IV Access ED Course Patient was given morphine for pain and Zofran for nausea. Labs show normal white count, unremarkable labs. She still having significant pain. CT scan did not visualize the appendix but did not show any other acute process. Ultrasound of the right lower quadrant and pelvis was done which did not show any problems but again nonvisualization of the appendix. Reviewed this with the patient. With a negative white count this is reassuring however she does have subjective fevers and severe pain. I offered to have her admitted the hospital and call the general surgeon versus returning home with close follow-up. She does have an appointment with the [facility] tomorrow. She will follow up as planned. I provided Lortab and Zofran for nausea and pain. She can return to the ER for reevaluation and sooner if she is worsening. Decision to Disposition Date: Jun 26, 2018 Decision to Disposition Time: 00:09 Depart Departure Latest Vital Signs Vital Signs Date Time Temp Pulse Resp B/P (MAP) Pulse Ox O2 Delivery O2 Flow Rate FiO2 06/25/18 23:30 99 111/59 (76) 94 06/25/18 20:20 99.1 16 Room Air Impression: Primary Impression: Abdominal pain Condition: Improved Disposition: HOME OR SELF-CARE New Scripts Ondansetron 4 Mg Odt (ONDANSETRON 4 MG ODT) 4 Mg Tab.rapdis 4 MG PO Q6H PRN for NAUSEA/VOMITING, #20 TAB 0 Refills Prov: MORGAN GOINS MD 06/26/18 Hydrocodone Bit/Acetaminophen (HYDROCODON-ACETAMINOPHEN 5-325) 1 Each Tablet 1 EACH PO Q4H PRN for PAIN, #12 TAB 0 Refills Prov: MORGAN GOINS MD 06/26/18 Patient Instructions: Acute Abdominal Pain (ED) Additional Instructions: Follow-up tomorrow with the [facility] as planned. Return to the ER sooner for worsening symptoms. Take Lortab 5/325, one every 4 hours as needed for severe pain. Take Zofran 4mg, one every 6 hours as needed for nausea or vomiting. Problem Qualifiers Primary Impression: Abdominal pain Abdominal location: right lower quadrant Qualified Codes: R10.31 - Right lower quadrant pain MORGAN GOINS MD Jun 25, 2018 20:34
[2018-06-25] MEDS ORDERED: NS(*) 0.9% 1000 ML BAG 1,000 ML IV ONE (20:42)
[2018-06-25] MEDS ORDERED: MORPHINE 4 MG/ML SDV IVP ONE (20:45)
[2018-06-25] MEDS ORDERED: ONDANSETRON 4 MG/2 ML VIAL IVP ONE (20:45)
[2018-06-25 20:57] LABS: PLATELET COUNT, AUTOMATED 272 K/uL (150-450)
--- NOTE | 2018-06-25 21:41 | RADIOLOGY IMAGING REPORT ---
FACILITY: [facility] [place] PATIENT NAME: Viji Baca : 1995 MR: [id number] V: [id number] EXAM DATE: ORDERING PHYSICIAN: MORGAN GOINS TECHNOLOGIST: Location: [facility] [place] Patient: Viji Baca : 1995 Visit/Account:[id number] Date of Sevice: 06/25/2018 COMPUTED TOMOGRAPHY OF THE Abdomen and Pelvis with CONTRAST INDICATION: Right lower quadrant pain. TECHNIQUE: Contiguous axial 3.[address] images were obtained through the abdomen and pelvis after 75 m L Isovue-370. Coronal and sagittal reformatted images were submitted. COMPARISON: CT June 07, 2018. FINDINGS: Lung bases: Clear Liver and hepatic vasculature: Imaging of the abdomen is degraded by motion. The liver is mildly en larged measuring 21 cm craniocaudal. Gallbladder and bile ducts: Normal Spleen: Unremarkable Pancreas: Normal Adrenals: Normal Kidneys, ureters and bladder: Nonobstructive punctate left renal calculi. The left kidney is larger than the right. Enhancement is symmetric. Normal-appearing bladder. Retroperitoneum and aorta: Normal GI tract, mesentery and peritoneum: A few small bowel loops are fluid-filled, a nonspecific finding. There is no bowel obstruction. Normal volume of gas and stool in the colon. No free air. The appe ndix is not definitively identified. Uterus and adnexa: Unremarkable uterus. Trace fluid in the cul-de-sac is likely physiologic. There are multiple follicles in both ovaries. Bones and soft tissues: No acute osseous abnormality. IMPRESSION: 1. The appendix is not definitively identified. 2. Small volume of fluid in the cul-de-sac is likely physiologic. There are several prominent folli cles at each ovary. 3. A few fluid-filled small bowel loops is a nonspecific or potentially even an incidental finding. Correlate with suspicion of enteritis. There is no bowel obstruction. One of the following dose optimization techniques was utilized in the performance of this exam: Autom ated exposure control; adjustment of the mA and/or kV according to the patient's size; or use of an i terative reconstruction technique. Specific details can be referenced in the facility's radiology C T exam operational policy. Report Dictated By: Yony Butler MD at 06/25/2018 9:26 PM Report E-Signed By: Yony Butler MD at 06/25/2018 9:37 PM WSN:[email or web address]
[2018-06-25 23:30] VITALS: BP 111/59
--- NOTE | 2018-06-25 23:46 | RADIOLOGY IMAGING REPORT ---
FACILITY: [facility] [place] PATIENT NAME: Viji Baca : 1995 MR: [id number] V: [id number] EXAM DATE: ORDERING PHYSICIAN: MORGAN GOINS TECHNOLOGIST: Location: [facility] [place] Patient: Viji Baca : 1995 Visit/Account:[id number] Date of Sevice: 06/25/2018 Exam type: RIGHT LOWER QUADRANT History: rlq/pelvic pain Comparison: CT dated June 07, 2018. Findings: Sonographic evaluation performed of the right lower quadrant. The appendix is not identified. There i s no free fluid or lymphadenopathy. The technologist reports no rebound tenderness or guarding. IMPRESSION: Nonvisualization of the appendix. Report Dictated By: Akira Sherwood MD at 06/25/2018 11:41 PM Report E-Signed By: Akira Sherwood MD at 06/25/2018 11:42 PM WSN:[id number]
--- NOTE | 2018-06-25 23:48 | RADIOLOGY IMAGING REPORT ---
FACILITY: [facility] PATIENT NAME: Viji Baca : 1995 MR: [id number] V: [id number] EXAM DATE: ORDERING PHYSICIAN: MORGAN GOINS TECHNOLOGIST: Location: [facility] [place] Patient: Viji Baca : 1995 Visit/Account:[id number] Date of Sevice: 06/25/2018 Transvaginal pelvic ultrasound INDICATION: Right lower quadrant pain. COMPARISON: CT dated June 07, 2018. FINDINGS: Uterus measures 6.1 x 3.8 x 3.5 cm. Uterus is retroverted. Double wall endometrial stripe measures 6 mm. There is mild free fluid in the cul-de-sac. Urinary bladder is empty. Pelvic vessels appear unremarkable on this examination. Right ovary measures 4.0 x 2.3 x 1.6 cm and shows normal blood flow and contains several small follic les. Left ovary measures 3.6 x 2.2 x 1.4 cm and shows normal blood flow and contains several small follicl es. IMPRESSION: 1. No acute findings. 2. Small volume free fluid within the pelvis, likely physiologic. Report Dictated By: Akira Sherwood MD at 06/25/2018 11:43 PM Report E-Signed By: Akira Sherwood MD at 06/25/2018 11:44 PM WSN:[id number]
[2018-06-26] MEDS ORDERED: ACET/HYDROC 5/325MG TH ER ONLY 2 TAB/BOTTLE PO ONE (00:10)
[2018-06-26] MEDS ORDERED: LOR5/325 PO (00:10)
[2018-06-26] MEDS ORDERED: ONDANSETRON 4 MG ODT TH SL ONE (00:10)
[2018-06-26] MEDS ORDERED: ONDA4TAB9 PO (00:10)
[2018-06-27] MEDS ORDERED: PROM12.556 PO (10:28)
== END 2018-06-26 00:15 | disposition home or self-care (01) ==
LOC: ER 20:34
DX: R10.31 Right lower quadrant pain (principal)
CPT/HCPCS: 74177; 76705; 76830; 81001; 82150; 83690; 84703; 85025; 86140; 96361; 96374; 96375; 99284; J2270; J2405; J7030; S0119; 82040; 82247; 82310; 82374; 82435; 82565; 82947; 84075; 84132; 84155; 84295; 84450; 84460; 84520

== ENCOUNTER 2018-06-27 08:15 | Emergency (ER) | payer SELFPAY ==
[~2018-06-27 08:15] MED LIST changes: +LOR5/325 PO; +ONDA4TAB9 PO
--- NOTE | 2018-06-27 08:16 | ER Report ---
History and Physical Time Seen By MD: 08:16 HPI/ROS CHIEF COMPLAINT: Right-sided abdominal pain, nausea HISTORY OF PRESENT ILLNESS: Patient is a 23-year-old female here with complaints of right-sided abdominal pain since Saturday which she describes as sharp stabbing, constant. Patient was evaluated here 2 days prior for similar complaints. CT, ultrasound were unremarkable at that time. Patient reports nausea, decreased appetite, constant pain. Denies prior surgeries to the abdomen. Denies prior history of IBD. REVIEW OF SYSTEMS: Constitutional: No fever, no chills. Eyes: No discharge. ENT: No sore throat. Cardiovascular: No chest pain, no palpitations. Respiratory: No cough, no shortness of breath. + congestion Gastrointestinal: + right sided abdominal pain, no vomiting. + nausea Genitourinary: No hematuria. Musculoskeletal: No back pain. Skin: No rashes. Neurological: No headache. Allergies: Coded Allergies: No Known Drug Allergies (Unverified , 03/24/18) Home Meds Active Scripts Promethazine Hcl (PROMETHAZINE HCL) 12.5 Mg Tablet, 12.5 MG PO Q6H, #20 TAB Prov:JUAQUIN HASKINS DO 06/27/18 Ondansetron 4 Mg Odt (ONDANSETRON 4 MG ODT) 4 Mg Tab.rapdis, 4 MG PO Q6H PRN for NAUSEA/VOMITING, #20 TAB 0 Refills Prov:MORGAN GOINS MD 06/26/18 Hydrocodone Bit/Acetaminophen (HYDROCODON-ACETAMINOPHEN 5-325) 1 Each Tablet, 1 EACH PO Q4H PRN for PAIN, #12 TAB 0 Refills Prov:MORGAN GOINS MD 06/26/18 Dicyclomine Hcl (DICYCLOMINE HCL) 20 Mg Tablet, 20 MG PO QID, #60 TAB Prov:DAVY MONTERO 06/07/18 Discontinued Scripts Ondansetron Hcl (ZOFRAN) 4 Mg Tablet, 4 MG PO Q6H PRN for NAUSEA/VOMITING, #20 TAB Prov:DAVY MONTERO 06/07/18 Hx Substance Use Disorder: No Hx Alcohol Use: No Constitutional Vital Sign - Last 24 Hours 06/27/18 06/27/18 06/27/18 06/27/18 08:23 08:24 08:30 08:45 Temp 98.6 Pulse 99 106 Resp 16 B/P (MAP) 126/93 (104) 126/93 116/82 (93) Pulse Ox 97 96 O2 Delivery Room Air 06/27/18 06/27/18 06/27/18 06/27/18 09:00 09:15 09:30 09:35 Pulse 103 119 B/P (MAP) 107/73 (84) 89/77 (81) Pulse Ox 96 06/27/18 06/27/18 06/27/18 10:00 10:05 10:30 Pulse 103 B/P (MAP) 100/71 (81) 95/66 (76) Pulse Ox 95 Physical Exam General Appearance: The patient is alert, has no immediate need for airway protection and no signs of toxicity. Moderate distress due to pain Eyes: Pupils equal and round no pallor or injection. ENT, Mouth: Mucous membranes are moist. Respiratory: There are no retractions, lungs are clear to auscultation. Cardiovascular: Regular rate and rhythm. Gastrointestinal: Abdomen is soft and + tender on the right side without rebound or guarding, no masses, bowel sounds normal. Neurological: No focal deficits Skin: Warm and dry, no rashes. Musculoskeletal: Neck is supple non tender. Extremities are nontender, nonswollen and have full range of motion. DIFFERENTIAL DIAGNOSIS: After history and physical exam differential diagnosis was considered for abdominal pain including but not limited to appendicitis, cholecystitis, gastritis and urinary tract infection. Medical Decision Making Data Points Result Diagram: 06/27/18 0844 06/27/18 0844 Laboratory Hematology Test 06/27/18 08:20 06/27/18 08:44 Urine Color Yellow Urine Clarity Slightly-cloudy Urine pH 5.0 pH (4.8-9.5) Urine Specific [place] 1.027 Urine Protein 30 mg/dL (NEGATIVE) Urine Glucose (UA) Negative mg/dL (NEGATIVE) Urine Ketones 80 mg/dL (NEGATIVE) Urine Blood Large (NEGATIVE) Urine Nitrite Negative (NEGATIVE) Urine Bilirubin Negative (NEGATIVE) Urine Urobilinogen Negative mg/dL (0.2-1.9) Urine Leukocyte Esterase Negative (NEGATIVE) Urine RBC 13 /HPF (0-2/HPF) Urine WBC 2 /HPF (0-5/HPF) Urine Squamous Epithelial Cells Many /LPF (</=FEW) Urine Transitional Epithelial Cells Few /LPF (NONE-FEW) Urine Bacteria Few /HPF (NONE-FEW) Urine Mucus Few /HPF (NONE-FEW) Urine HCG, Qualitative Negative (NEGATIVE) Red Blood Count 5.76 M/uL (4.17-5.56) Mean Corpuscular Volume 85.5 fL (80.0-96.0) Mean Corpuscular Hemoglobin 28.6 pg (26.0-33.0) Mean Corpuscular Hemoglobin Concent 33.5 g/dL (32.0-36.0) Red Cell Distribution Width 13.8 % (11.5-14.5) Mean Platelet Volume 7.9 fL (7.2-11.1) Neutrophils (%) (Auto) 78.4 % (39.4-72.5) Lymphocytes (%) (Auto) 9.5 % (17.6-49.6) Monocytes (%) (Auto) 11.6 % (4.1-12.4) Eosinophils (%) (Auto) 0.2 % (0.4-6.7) Basophils (%) (Auto) 0.3 % (0.3-1.4) Nucleated RBC Relative Count (auto) 0.2 /100WBC Neutrophils # (Auto) 4.0 K/uL (2.0-7.4) Lymphocytes # (Auto) 0.5 K/uL (1.3-3.6) Monocytes # (Auto) 0.6 K/uL (0.3-1.0) Eosinophils # (Auto) 0.0 K/uL (0.0-0.5) Basophils # (Auto) 0.0 K/uL (0.0-0.1) Nucleated RBC Absolute Count (auto) 0.01 K/uL Erythrocyte Sedimentation Rate 5 mm/HOUR (0-20) Sodium Level 138 mmol/L (137-145) Potassium Level 4.1 mmol/L (3.5-5.0) Chloride Level 107 mmol/L (98-107) Carbon Dioxide Level 17 mmol/L (22-31) Blood Urea Nitrogen 11 mg/dl (7-18) Creatinine 0.70 mg/dl (0.52-1.04) Glomerular Filtration Rate Calc > 60.0 Random Glucose 80 mg/dl (75-110) Lactate 1.7 mmol/L (0.7-2.1) Calcium Level 9.9 mg/dl (8.4-10.2) Total Bilirubin 1.0 mg/dl (0.2-1.3) Aspartate Amino Transf (AST/SGOT) 58 U/L (0-35) Alanine Aminotransferase (ALT/SGPT) 149 U/L (0-56) Alkaline Phosphatase 112 U/L (0-126) C-Reactive Protein 4.1 mg/dl (<1.0) Total Protein 8.9 g/dl (6.3-8.2) Albumin 5.0 g/dl (3.5-5.0) Lipase 88 U/L (23-300) Chemistry Test 06/27/18 08:20 06/27/18 08:44 Urine Color Yellow Urine Clarity Slightly-cloudy Urine pH 5.0 pH (4.8-9.5) Urine Specific [place] 1.027 Urine Protein 30 mg/dL (NEGATIVE) Urine Glucose (UA) Negative mg/dL (NEGATIVE) Urine Ketones 80 mg/dL (NEGATIVE) Urine Blood Large (NEGATIVE) Urine Nitrite Negative (NEGATIVE) Urine Bilirubin Negative (NEGATIVE) Urine Urobilinogen Negative mg/dL (0.2-1.9) Urine Leukocyte Esterase Negative (NEGATIVE) Urine RBC 13 /HPF (0-2/HPF) Urine WBC 2 /HPF (0-5/HPF) Urine Squamous Epithelial Cells Many /LPF (</=FEW) Urine Transitional Epithelial Cells Few /LPF (NONE-FEW) Urine Bacteria Few /HPF (NONE-FEW) Urine Mucus Few /HPF (NONE-FEW) Urine HCG, Qualitative Negative (NEGATIVE) White Blood Count 5.1 k/uL (4.5-11.0) Red Blood Count 5.76 M/uL (4.17-5.56) Hemoglobin 16.5 g/dL (12.0-16.0) Hematocrit 49.2 % (34.0-47.0) Mean Corpuscular Volume 85.5 fL (80.0-96.0) Mean Corpuscular Hemoglobin 28.6 pg (26.0-33.0) Mean Corpuscular Hemoglobin Concent 33.5 g/dL (32.0-36.0) Red Cell Distribution Width 13.8 % (11.5-14.5) Platelet Count 238 K/uL (150-450) Mean Platelet Volume 7.9 fL (7.2-11.1) Neutrophils (%) (Auto) 78.4 % (39.4-72.5) Lymphocytes (%) (Auto) 9.5 % (17.6-49.6) Monocytes (%) (Auto) 11.6 % (4.1-12.4) Eosinophils (%) (Auto) 0.2 % (0.4-6.7) Basophils (%) (Auto) 0.3 % (0.3-1.4) Nucleated RBC Relative Count (auto) 0.2 /100WBC Neutrophils # (Auto) 4.0 K/uL (2.0-7.4) Lymphocytes # (Auto) 0.5 K/uL (1.3-3.6) Monocytes # (Auto) 0.6 K/uL (0.3-1.0) Eosinophils # (Auto) 0.0 K/uL (0.0-0.5) Basophils # (Auto) 0.0 K/uL (0.0-0.1) Nucleated RBC Absolute Count (auto) 0.01 K/uL Erythrocyte Sedimentation Rate 5 mm/HOUR (0-20) Glomerular Filtration Rate Calc > 60.0 Lactate 1.7 mmol/L (0.7-2.1) Calcium Level 9.9 mg/dl (8.4-10.2) Total Bilirubin 1.0 mg/dl (0.2-1.3) Aspartate Amino Transf (AST/SGOT) 58 U/L (0-35) Alanine Aminotransferase (ALT/SGPT) 149 U/L (0-56) Alkaline Phosphatase 112 U/L (0-126) C-Reactive Protein 4.1 mg/dl (<1.0) Total Protein 8.9 g/dl (6.3-8.2) Albumin 5.0 g/dl (3.5-5.0) Lipase 88 U/L (23-300) Urinalysis Test 06/27/18 08:20 Urine Color Yellow Urine Clarity Slightly-cloudy Urine pH 5.0 pH (4.8-9.5) Urine Specific [place] 1.027 Urine Protein 30 mg/dL (NEGATIVE) Urine Glucose (UA) Negative mg/dL (NEGATIVE) Urine Ketones 80 mg/dL (NEGATIVE) Urine Blood Large (NEGATIVE) Urine Nitrite Negative (NEGATIVE) Urine Bilirubin Negative (NEGATIVE) Urine Urobilinogen Negative mg/dL (0.2-1.9) Urine Leukocyte Esterase Negative (NEGATIVE) Urine RBC 13 /HPF (0-2/HPF) Urine WBC 2 /HPF (0-5/HPF) Urine Squamous Epithelial Cells Many /LPF (</=FEW) Urine Transitional Epithelial Cells Few /LPF (NONE-FEW) Urine Bacteria Few /HPF (NONE-FEW) Urine Mucus Few /HPF (NONE-FEW) Urine HCG, Qualitative Negative (NEGATIVE) EKG/Imaging Imaging Location: [facility] - [place], [place] Patient: Viji Baca : 1995 Visit/Account:[id number] Date of Sevice: 06/27/2018 GALLBLADDER COMPARISON: None. HISTORY: RUQ abd pain TECHNIQUE: Evans scale ultrasound of the right upper quadrant was performed. FINDINGS: LIVER: Normal size, 16.9 cm craniocaudally, and morphology with normal homogeneous echotexture. No appreciable masses. There is hepatopedal flow in the main portal vein as expected. GALLBLADDER: Normal size. No gallstones, wall thickening or pericholecystic fluid. Sonographic Almaraz's sign was reportedly positive. BILE DUCTS: No intrahepatic or extrahepatic bile duct dilatation. Common bile duct measures 4 mm. PANCREAS: Normal ultrasound appearance. RIGHT KIDNEY: Survey sagittal view of the right kidney shows no hydronephrosis. OTHER: Negative. IMPRESSION: Normal-appearing gallbladder although the tank welder reports a positive sonographic Almaraz sign. ED Course/Re-evaluation ED Course Patient is a 23-year-old female here with recurrent right-sided abdominal pain and a recent negative CT scanning of the abdomen, ultrasound of the right lower quadrant. Patient reports persistent pain, nausea, vomiting. Labs are unremarkable, lactate was normal, ESR was normal. Due to persistent pain in the right upper quadrant, ultrasound was obtained and showed no acute findings. I recommend close follow-up with gastroenterology. Return precautions provided. Patient received multiple analgesics during course. Patient was hemodynamically stable at time of discharge. Decision to Disposition Date: Jun 27, 2018 Decision to Disposition Time: 10:26 Depart Departure Latest Vital Signs Vital Signs Date Time Temp Pulse Resp B/P (MAP) Pulse Ox O2 Delivery O2 Flow Rate FiO2 06/27/18 10:30 95/66 (76) 06/27/18 10:05 103 95 06/27/18 08:24 98.6 16 Room Air Impression: Primary Impression: Abdominal pain Additional Impression: Vomiting and diarrhea Condition: Improved Disposition: HOME OR SELF-CARE New Scripts Promethazine Hcl (PROMETHAZINE HCL) 12.5 Mg Tablet 12.5 MG PO Q6H, #20 TAB Prov: JUAQUIN HASKINS DO 06/27/18 Patient Instructions: Abdominal Pain (ED) Additional Instructions: Please drink plenty of water. Your gallbladder ultrasound was found be normal today. Please follow-up with gastroenterology for further evaluation and outpatient care. Please return promptly if she develop worsening pain, fevers, inability to keep down food or fluids. You may take 1 tablet of Phenergan every 6 hours as needed for nausea and vomiting. Please follow-up with your primary care provider within the next 24-48 hours. Problem Qualifiers JUAQUIN HASKINS DO Jun 27, 2018 08:16
[2018-06-27] MEDS ORDERED: NS(*) 0.9% 1000 ML BAG 1,000 ML IV ONE ×3 (08:29→10:05)
[2018-06-27] MEDS ORDERED: ONDANSETRON 4 MG/2 ML VIAL IVP ONE (08:30)
[2018-06-27] MEDS ORDERED: fentaNYL CITR 100 MCG/2 ML AMP IVP ONE (08:30)
[2018-06-27] MEDS ORDERED: MAG HYD/AL HYD/SIMETH 30ML UDC PO ONE (08:30)
[2018-06-27] MEDS ORDERED: LIDOCAINE 2% VISC SLN 15ML UDC PO ONE (08:30)
[2018-06-27 08:58] LABS: PLATELET COUNT, AUTOMATED 238 K/uL (150-450)
[2018-06-27] MEDS ORDERED: METOCLOPRAMIDE 10 MG/2 ML SDV IVP ONE (09:15)
[2018-06-27] MEDS ORDERED: PROMETHAZINE 25 MG/ML 1 ML AMP IVP ONE (09:35)
[2018-06-27] MEDS ORDERED: PROM12.556 PO (10:28)
[2018-06-27 10:30] VITALS: BP 95/66
--- NOTE | 2018-06-27 10:47 | RADIOLOGY IMAGING REPORT ---
FACILITY: [facility] PATIENT NAME: Viji Baca : 1995 MR: [id number] V: [id number] EXAM DATE: ORDERING PHYSICIAN: JUAQUIN HASKINS TECHNOLOGIST: Location: [facility] Patient: Viji Baca : 1995 Visit/Account:[id number] Date of Sevice: 06/27/2018 GALLBLADDER COMPARISON: None. HISTORY: RUQ abd pain TECHNIQUE: Evans scale ultrasound of the right upper quadrant was performed. FINDINGS: LIVER: Normal size, 16.9 cm craniocaudally, and morphology with normal homogeneous echotexture. No appreciable masses. There is hepatopedal flow in the main portal vein as expected. GALLBLADDER: Normal size. No gallstones, wall thickening or pericholecystic fluid. Sonographic Mur phy's sign was reportedly positive. BILE DUCTS: No intrahepatic or extrahepatic bile duct dilatation. Common bile duct measures 4 mm. PANCREAS: Normal ultrasound appearance. RIGHT KIDNEY: Survey sagittal view of the right kidney shows no hydronephrosis. OTHER: Negative. IMPRESSION: Normal-appearing gallbladder although the traffic rate clerk reports a positive sonographic Almaraz sign. Report Dictated By: Urbano Bliss at 06/27/2018 10:41 AM Report E-Signed By: Urbano Bliss at 06/27/2018 10:43 AM WSN:[id number]
== END 2018-06-27 10:59 | disposition home or self-care (01) ==
LOC: ER 09:05
DX: R10.11 Right upper quadrant pain (principal); R11.10 Vomiting, unspecified; R19.7 Diarrhea, unspecified
CPT/HCPCS: 76705; 81001; 81025; 83605; 83690; 85025; 85651; 86140; 96361; 96374; 96375; 99284; J2405; J2550; J2765; J3010; J7030; 82040; 82247; 82310; 82374; 82435; 82565; 82947; 84075; 84132; 84155; 84295; 84450; 84460; 84520